=== PATIENT | female | born 1995 | race Caucasian/White ===

== ENCOUNTER → 2017-12-23 | Outpatient (CLI) | payer OTHER ==
[~2017-12-23] MED LIST: BCPILLS PO; ISOT10CA3 PO
--- NOTE | 2017-12-23 15:13 | MAMMOGRAPHY REPORT ---
ULTRASOUND OF RIGHT BREAST: 12/23/2017 CLINICAL HISTORY: The patient reports a palpable right breast lump for approximately 2-3 weeks. COMPARISON: No prior exams were available for comparison. TECHNIQUE: Real-time targeted ultrasound of the right breast was performed. FINDINGS: Real-time, high-resolution targeted ultrasound was performed of the area of the palpable joan mp pointed out by the patient, in the right 4 to 5:00 breast, centered around 6 cm from the nipple. Sonographically normal tissue is seen in this region, without evidence of a mass or other suspicious sonographic abnormality. IMPRESSION: ACR BI-RADS CATEGORY 1: NEGATIVE No suspicious sonographic abnormality at the site of the palpable right breast lump pointed out by th e patient. There is no sonographic evidence of malignancy. Recommend clinical follow-up. The patient was verbally notified of the results. Yumi Chacon M.D. ah/:12/23/2017 11:43:38 Stringed Instrument Repairer: Olivia [email or web address])(Emiliano), [facility] letter sent: Normal 1/2 BI-RADS Code: ACR BI-RADS Category 1: Negative
== END | disposition home or self-care (01) ==
LOC: C.MAMM 11:15
PROVIDERS: ATTEND Nurse Practitioner Obstetrics & Gynecology
DX: N63.10 Unspecified lump in the right breast, unspecified quadrant (principal)